=== PATIENT | female | born 1965 | race Caucasian/White ===

== ENCOUNTER 2017-07-30 08:17 | Observation (INO) | payer BC ==
[2017-07-11 10:45] VITALS: BMI 27.0
--- NOTE | 2017-07-11 11:19 | PAT Medication Instructions ---
Service Date Jul 11, 2017. Current Home Medication List Amitriptyline Hcl (Elavil), 50 MG PO HS Bupropion (Wellbutrin Sr), 400 MG PO QAM Gabapentin (Neurontin), 300 MG PO TID Melatonin (Melatonin Maximum Strengt), 1 TAB PO HS Meloxicam (Mobic), 7.5 MG PO BID Mometasone Furoate (Elocon), 1 DOSE TOP PRN Multivitamin (Multivitamin), 1 TAB PO QAM Polyethylene Glycol 3350 (Miralax), 17 GM PO PRN Venlafaxine Hcl (Venlafaxine Hcl Er), 1 TAB PO for PM Medication Instructions For Your Scheduled Surgery - Hold the following medications per your surgeon's instructions: Meloxicam (Mobic), 7.5 MG PO BID - Hold the following medications 24 hours prior to surgery: Mometasone Furoate (Elocon), 1 DOSE TOP PRN - Hold the following medications the morning of surgery: Multivitamin (Multivitamin), 1 TAB PO QAM Polyethylene Glycol 3350 (Miralax), 17 GM PO PRN - Take the following medications the morning of surgery with a sip of water: Gabapentin (Neurontin), 300 MG PO TID Bupropion (Wellbutrin Sr), 400 MG PO QAM - Take the following medications as scheduled the night before surgery: Polyethylene Glycol 3350 (Miralax), 17 GM PO PRN (if needed) Venlafaxine Hcl (Venlafaxine Hcl Er), 1 TAB PO for PM Amitriptyline Hcl (Elavil), 50 MG PO HS Gabapentin (Neurontin), 300 MG PO TID Melatonin (Melatonin Maximum Strengt), 1 TAB PO HS If you have any questions please call us at [phone] or [phone] or [phone]
[2017-07-11 12:54] LABS: BASO % 0.4 %; BASO ABS # 0.03 K/uL (0-0.2); COMPLETE YES; EOS % 1.3 %; HEMATOCRIT 40.4 % (37-47); IG% 0.5 %; LYMPH % 35.6 %; LYMPH ABS # 2.99 K/uL (1.2-3.4); MEAN CELL VOLUME 96.9 fL (80-100); MEAN CORPUSCULAR HEMOGLOBIN 33.8 pg (25-34); MEAN CORPUSCULAR HGB CONC 34.9 g/dl (32-36); MEAN PLATELET VOLUME 10.8 fL (7.4-10.4); MONO % 8.8 %; NEUT % 53.4 %; PLATELET COUNT 241 K/uL (130-400); RED BLOOD COUNT 4.17 M/uL (4.2-5.4); WHITE BLOOD COUNT 8.39 K/uL (4.8-10.8)
--- NOTE | 2017-07-11 12:58 | DIAGNOSTIC IMAGING REPORT ---
CHEST PREADMISSION(PA/LAT) CLINICAL HISTORY: Preoperative evaluation. COMPARISON STUDY: No previous studies for comparison. FINDINGS: Postoperative findings within the upper anterior abdominal wall are incidentally noted. Lung volumes are normal. No pneumothorax or pleural effusion is present. There is no consolidation or evidence of pulmonary edema. Cardiomediastinal silhouette is normal IMPRESSION: No acute cardiopulmonary findings. Electronically signed by: Steve Gavin M.D. 07/11/2017 12:57 PM Dictated Date/Time: 07/11/2017 12:56 PM
[2017-07-11 13:04] LABS: BUN/CREATININE RATIO 20.1 (10-20); CALCIUM 8.9 mg/dl (8.5-10.1); CREATININE 0.69 mg/dl (0.60-1.20); POTASSIUM 3.8 mmol/L (3.5-5.1)
[2017-07-11 13:11] LABS: URINE APPEARANCE CLEAR (CLEAR); URINE BILIRUBIN NEG (NEG); URINE COLOR YELLOW; URINE EPITHELIAL CELL AUTO >30 /lpf (0-5); URINE NITRITE NEG (NEG); URINE PH 6.5 (4.5-7.5); UROBILINOGEN NEG (NEG)
[2017-07-11 13:12] LABS: MANUAL MICROSCOPIC REQUIRED? NO; REVIEW REQ? NO
[2017-07-30] VITALS (14 sets, daily range): BP systolic 116–160; BP diastolic 62–79; PULSE 65–96; TEMP 36.3–38; O2SAT 95–99; Ht 170.2 cm; Wt 79.6 kg
[~2017-07-30] VITALS: Ht 170.2 cm; Wt 79.6 kg
[~2017-07-30 08:17] MED LIST: AMT50 PO; BUPR200T2 PO; CEFAZOLIN 1000MG IV PUSH 5 ML IV SCH; GABA-113 PO; LACTATED RINGER'S 1000ML 1,000 ML IV SCH; MELATAB2 PO; MELO7.5T5 PO; MOME0.1L3 TOP; MULT-506 PO; POLY335019 PO; VENL150T33 PO
--- NOTE | 2017-07-30 08:40 | History & Physical Bridge Note ---
H&P Re-Evaluation Bridge Note: I have examined the patient, reviewed the History & Physical and in the interval since the performance of the History & Physical I have noted the following changes of clinical significance: No changes noted
--- NOTE | 2017-07-30 08:41 | History and Physical ---
History & Physical Date Jul 30, 2017. Chief Complaint Neck and arm pain History of Present Illness The patient is a 52 year old female with complaints of neck and arm pain Additional History Hepatic Disease: No Endocrine Disorder: No Kidney Disease: No Hypertension: No Heart Disease: No Bleeding Tendencies: No Infectious Diseases: No Allergies Coded Allergies: No Known Allergies (Unverified , 07/11/17) Home Medications Scheduled Amitriptyline Hcl (Elavil), 50 MG PO HS Bupropion (Wellbutrin Sr), 400 MG PO QAM Gabapentin (Neurontin), 300 MG PO TID Melatonin (Melatonin Maximum Strengt), 1 TAB PO HS Meloxicam (Mobic), 7.5 MG PO BID Mometasone Furoate (Elocon), 1 DOSE TOP PRN Multivitamin (Multivitamin), 1 TAB PO QAM Polyethylene Glycol 3350 (Miralax), 17 GM PO PRN Scheduled PRN Venlafaxine Hcl (Venlafaxine Hcl Er), 1 TAB PO for PM Physical Examination Skin: warm/dry, no rash Eyes: normal inspection, EOMI, sclerae normal ENT: normal ENT inspection, pharynx normal Head: normocephalic, atraumatic Neck: supple, no adenopathy, trachea midline Respiratory/Chest: lungs clear, normal breath sounds, no respiratory distress Cardiovascular: regular rate, rhythm, no edema, no murmur Abdomen / GI: normal bowel sounds, non tender Back: normal inspection Extremities: normal inspection, normal range of motion Neurologic/Psych: no motor/sensory deficits, alert, normal reflexes, oriented x 3 Diagnosis Cervical spinal stenosis Plan of Treatment ACDF C5 6 C6 7
[2017-07-30] MEDS ORDERED: MIDAZOLAM HCL 1 MG/ML 2ML VIAL ONE (08:58)
[2017-07-30] MEDS ORDERED: FENTANYL CITRATE INJ 50 MCG/1 ML 2 ML VIAL ONE ×3 (08:58→10:40)
[2017-07-30] MEDS ORDERED: MEPERIDINE HCL 25 MG/ML CARP IV PRN (09:00)
[2017-07-30] MEDS ORDERED: ONDANSETRON INJ 2 MG/ML 2 ML VIAL IV PRN ×2 (09:00→11:00)
[2017-07-30] MEDS ORDERED: ATROPINE SULFATE 0.1 MG/ML 5ML SYR IV PRN (09:00)
[2017-07-30] MEDS ORDERED: HYDROmorphone INJ 1 MG/ML SYR IV PRN (09:00)
[2017-07-30] MEDS ORDERED: LABETALOL HCL IV 5 MG/ML 20ML IV PRN (09:00)
[2017-07-30] MEDS ORDERED: EpHEDrine SULFATE INJ 50 MG/ML AMP IV PRN (09:00)
[2017-07-30] MEDS ORDERED: BACITRACIN 50000 UNIT VIAL ONE (09:03)
[2017-07-30] MEDS ORDERED: HYDROmorphone INJ 2 MG/ML SYR/VIAL ONE ×2 (09:39→10:42)
[2017-07-30] MEDS ORDERED: EpHEDrine SULFATE 50MG/5ML SYR ONE (09:56)
[2017-07-30] MEDS ORDERED: PHENYLEPHRINE 100MCG/ML 5ML SYR ONE (09:56)
[2017-07-30] MEDS ORDERED: LIDOCAINE HCL 2% 2 ML VIAL (20MG/ML) ONE (10:30)
[2017-07-30] MEDS ORDERED: ONDANSETRON INJ 2 MG/ML 2 ML VIAL ONE ×2 (10:30→11:50)
[2017-07-30] MEDS ORDERED: DEXAMETHASONE SOD INJ 4 MG/ML VIAL ONE (10:30)
[2017-07-30] MEDS ORDERED: PROPOFOL IV EMULSION 10 MG/ML 20 ML VIAL IV ONE (10:30)
[2017-07-30] MEDS ORDERED: ROCURONIUM BROMIDE 10 MG/ML 5 ML VIAL IV ONE (10:30)
[2017-07-30] MEDS ORDERED: FLOSEAL HEMOSTATIC MATRIX 10ML TOP ONE (10:42)
--- NOTE | 2017-07-30 10:56 | DIAGNOSTIC IMAGING REPORT ---
Cervical SPINE, INTRAOPERATIVE FLUOROSCOPY HISTORY: ACDF C5 C7. FLUOROSCOPY TIME: 16 seconds. FINDINGS: Intraoperative fluoroscopy was provided for the cervical spine. 5 fluoroscopic spot images were obtained. Anterior cervical discectomy and fusion from C5 through C7. The hardware appears intact. IMPRESSION: Fluoroscopy provided for a C5-C7 ACDF. Electronically signed by: Marino Yeager M.D. 07/30/2017 10:55 AM Dictated Date/Time: 07/30/2017 10:54 AM
[2017-07-30] MEDS ORDERED: LORAZEPAM INJ 0.5 MG in SYRINGE 0.75 ML IV PRN (11:00)
[2017-07-30] MEDS ORDERED: MAGNESIUM HYDROXIDE SUSP 30 ML UDC PO PRN (11:00)
[2017-07-30] MEDS ORDERED: DiphenhydrAMINE HCL 50 MG/ML VIAL IV PRN (11:00)
[2017-07-30] MEDS ORDERED: ACETAMINOPHEN IV 1,000 MG in EMPTY BAG 0 ML IV PRN (11:00)
[2017-07-30] MEDS ORDERED: DO NOT ADMINISTER FLU VACCINE PRN ×3 (11:00)
[2017-07-30] MEDS ORDERED: RACEPINEPHRINE 2.25% NEBU SOLN 0.5 ML VIAL INH PRN (11:00)
[2017-07-30] MEDS ORDERED: NALOXONE HCL 0.4 MG/1 ML VIAL/CARP IV PRN (11:00)
[2017-07-30] MEDS ORDERED: LORAZEPAM 0.5 MG TAB PO PRN (11:00)
[2017-07-30] MEDS ORDERED: DO NOT ADMINISTER PNEUMOCOCCAL VACCINE PRN ×2 (11:00)
[2017-07-30] MEDS ORDERED: DEXAMETHASONE INJ 8 MG in SYRINGE 0 ML IV PRN (11:00)
--- NOTE | 2017-07-30 11:07 | [facility] Operative Report ---
Operative Report Operative Date Jul 30, 2017. Pre-Operative Diagnosis Cervical spinal stenosis Post-Operative Diagnosis Cervical spinal stenosis Procedure(s) Performed #1 anterior cervical discectomy bilateral foraminotomies C5 6 C6 7. #2 anterior cervical arthrodesis C5 6 C6 7. #3 placement of cortical allograft filled with DBM 7 mm in height C5 6 and C6 7. #4 application of carvajal plate and screws C5 [address] Carrillo Rn Telemetry Surgeon(s) ISRAEL Snider Estimated Blood Loss 20ml Findings Severe spinal stenosis Specimens none per surgeon Description of Procedure Patient was met with preoperatively case discussed all questions addressed. After informed consent was obtained patient was taken to the operative suite underwent intubation and placed in a supine position the Van table on top of the Fareed frame. All bony prominences were well-padded eyes inspected to ensure no external pressure placed upon them. This point the anterior cervical spine was prepped and draped nostril fashion. With the assistance of fluoroscopy identified the C5 6 vertebral body. A transverse incision was placed along the right anterior aspect of cervical spine overlying surgery. Dissection with the assistance of bipolar electrocautery was performed onto an exposing the anterior cervical spine C5 6 and 7. Cefotan retractors placed. Then performed a complete discectomy of C5 6 out to the uncovertebral joints bilaterally. This did include removal of all posterior annular fibers and longitudinal ligament and bilateral foraminotomies. Anchorage distracting pins were utilized to assist us no visualization. After complete decompression endplates were burred to subcortical bleeding bone and a 7 mm allograft filled with DBM was tapped in position. Distracting apparatus was removed and I proceeded to C5 6 level. Again a complete discectomy was performed out to the uncovertebral joints bilaterally. Anchorage distractor again used. I did remove all posterior inner fibrous longitudinal ligament and bilateral foraminotomies performed. An plates burred to subcortical bleeding bone and again a 7 mm cortical graft filled with DBM tapped in position. Distracting apparatus was removed. All anterior osteophytes were were burred to smooth cortical surface and a carvajal plate and screws applied with the assistance of fluoroscopy. Incision was in copious irrigated explored to ensure there is no damage to signing structures remaining bleeding and a 10 round NAWAF drain inserted. Was then closed with 2 Vicryl in the fascia for Monocryl for final skin closure Steri-Strips sterile dressings placed. Patient we can take PACU in stable condition. Please note Yvonne Stephens was present at the entire procedure involved in patient positioning complex portions of the surgery and final skin closure. I attest to the content of the Intraoperative Record and any orders documented therein. Any exceptions are noted below.
[2017-07-30] MEDS: FENTANYL CITRATE INJ 50 MCG/1 ML 2 ML VIAL IV PRN ×2 (11:38→11:47)
[2017-07-30] MEDS ORDERED: GLYCOPYRROLATE INJ 0.2 MG/ML VIAL ONE (11:50)
[2017-07-30] MEDS ORDERED: NEOSTIGMINE METHYLSULFATE 1 MG/ML 10ML VIAL ONE (11:50)
[2017-07-30] MEDS ORDERED: CEFAZOLIN SOD 1 GM VIAL ONE (12:03)
--- NOTE | 2017-07-30 12:42 | Anesthesiology Progress Note ---
Anesthesia Post Op Note Date & Time Jul 30, 2017 at 12:42 Vital Signs Pain Intensity: 3 Vital Signs Past 12 Hours Date Time Temp Pulse Resp B/P (MAP) Pulse Ox O2 Delivery O2 Flow Rate FiO2 07/30/17 12:16 137/78 07/30/17 12:14 85 17 97 07/30/17 12:14 84 17 07/30/17 12:11 135/77 07/30/17 12:09 76 18 95 07/30/17 12:09 75 18 07/30/17 12:06 132/77 07/30/17 12:05 36.5 72 20 138/78 96 Nasal Cannula 4 07/30/17 12:04 81 18 97 07/30/17 12:04 80 18 07/30/17 12:01 138/78 07/30/17 11:59 80 18 98 07/30/17 11:59 80 18 07/30/17 11:56 139/75 07/30/17 11:54 70 12 98 07/30/17 11:54 72 12 07/30/17 11:51 135/71 07/30/17 11:49 75 17 97 07/30/17 11:49 72 17 07/30/17 11:46 137/76 07/30/17 11:44 73 17 07/30/17 11:44 73 17 96 07/30/17 11:41 145/76 07/30/17 11:39 74 20 96 07/30/17 11:39 74 20 07/30/17 11:36 147/78 07/30/17 11:34 80 19 94 07/30/17 11:34 80 19 07/30/17 11:31 148/82 07/30/17 11:29 81 20 07/30/17 11:29 82 20 97 07/30/17 11:26 140/84 07/30/17 11:24 81 22 93 07/30/17 11:24 81 22 07/30/17 11:21 146/84 07/30/17 11:19 77 20 07/30/17 11:19 76 20 94 07/30/17 11:16 151/80 07/30/17 11:14 87 18 07/30/17 11:14 87 18 94 07/30/17 11:11 153/76 07/30/17 11:09 81 22 96 07/30/17 11:09 81 22 07/30/17 11:06 133/68 07/30/17 11:04 78 16 07/30/17 11:04 78 16 91 07/30/17 11:00 145/73 07/30/17 11:00 36.2 82 14 145/73 91 Mask 12 07/30/17 08:48 36.7 71 20 160/78 Room Air Notes Mental Status: alert / awake / arousable, participated in evaluation Pt Amnestic to Procedure: Yes Nausea / Vomiting: adequately controlled Pain: adequately controlled Airway Patency, RR, SpO2: stable & adequate BP & HR: stable & adequate Hydration State: stable & adequate Anesthetic Complications: no major complications apparent
[2017-07-30] MEDS ORDERED: LACTATED RINGER'S 1000ML 1,000 ML IV SCH (13:00)
[2017-07-30] MEDS: HYDROmorphone INJ 0.5 MG/0.5 ML SYR IV PRN ×2 (13:05→17:53)
[2017-07-30] MEDS ORDERED: RXC5 PO (13:22)
--- NOTE | 2017-07-30 13:23 | Discharge Instructions ---
Discharge Instructions Date of Service Jul 30, 2017. Admission Reason for Admission: Cervical Spinal Stenosis Discharge Discharge Diagnosis / Problem: cervical stenosis Discharge Goals Goal(s): Improve function Activity Recommendations Activity Limitations: per Instructions/Follow-up section . Instructions / Follow-Up Instructions / Follow-Up ACTIVITY RECOMMENDATIONS: SELF CARE INSTRUCTIONS AFTER CERVICAL FUSIONS 1. No smoking. Smoking drastically decreases the chance of a solid fusion. 2. No bending, lifting more than 5 pounds, or twisting (roll like a log when turning in bed). 3. You may shower 3 days after surgery. Thoroughly dry wound. Do not soak in the tub. 4. Cervical collar: Must be worn at all times including sleeping. You may remove the brace only to bath, eat and if you are sitting in a recliner. 5. Please walk as much as you can for exercise. Gradually increase the distance that you walk as your endurance increases. SPECIAL CARE INSTRUCTIONS: VERY IMPORTANT TO READ AND REVIEW A. Do not take any anti-inflammatory medications (i.e. Indocin, Advil, Aspirin, Naprosyn, Aleve, Motrin, etc.) as these may inhibit the chance of a solid fusion. Tylenol is okay to take. B. Your surgical incision has been closed with a cosmetic suture under the skin that will dissolve in about 6 weeks. In 14 days, you can use a pair of clean scissors and cut the suture that is left outside of the skin at the ends of your incision. C. Complications are uncommon, but please contact us if you have any signs or symptoms of: 1. wound infection (fever higher than 102.5 degrees F, redness, separation of wound, drainage, or increasing pain from the incision) 2. blood clots in legs (pain, swelling, redness and warmth in legs) 3. urinary tract infection (fever higher than 102.5 degrees, burning upon urination or increased frequency of urination) 4. nerve problems (inability to walk on your toes or heels, numbness, loss of bowel or bladder control) 5. any other symptoms that concern you. D. Please call the office at if you have any concerns or questions about your operation or recovery. MANAGING PAIN AFTER SPINAL SURGERY 1. Narcotic medication is intended for short-term use and will be provided for surgical pain. Surgical pain usually lasts for a period of 4-6 weeks. Narcotic medication includes Percocet, Vicodin, Darvocet, Tylenol #3 or Lortab. 2. Longer-term pain is more appropriately treated with non-narcotic medication such as Tylenol ES. 3. Muscle spasm is not appropriately treated with narcotics. Muscle relaxers such as Soma, Flexeril or Skelaxin can be used along with Tylenol ES. 4. Remember that we all live with some "aches and pains". This is not unusual or uncommon after an injury or as we get older. 5. We will provide appropriate medication within the normal guidelines of their prescribed use. We will also be very cautious and aware of potential abuse and extended duration of patients' medication needs. 6. Please allow 2-3 days to process refills. Prescriptions will not be mailed but must be picked up at the office. FOLLOW UP VISIT: Keep your scheduled follow-up appointment. Any questions, please call the office at . Current Hospital Diet Patient's current hospital diet: Clear Liquid Diet Discharge Diet Recommended Diet: Regular Diet Procedures Procedures Performed: #1 anterior cervical discectomy bilateral foraminotomies C5 6 C6 7. #2 anterior cervical arthrodesis C5 6 C6 7. #3 placement of cortical allograft filled with DBM 7 mm in height C5 6 and C6 7. #4 application of carvajal plate and screws C5 6 C6 7 Pending Studies Studies pending at discharge: no Medical Emergencies . Who to Call and When: Medical Emergencies: If at any time you feel your situation is an emergency, please call 911 immediately. . Non-Emergent Contact Non-Emergency issues call your: Primary Care Provider . "Provider Documentation" section prepared by Efe Carrillo. . VTE Core Measure Inpt VTE Proph given/why not?: Donald Deshpande, SCD's
[2017-07-30] MEDS ORDERED: SCOPOLAMINE 1.5 MG TDSY TD SCH (13:30)
[2017-07-30] MEDS: OXYCODONE HCL IR 5 MG TAB (IMMEDIATE RELEASE) PO PRN ×2 (15:27→21:39)
[2017-07-30] MEDS: GABAPENTIN 300 MG CAP PO SCH ×2 (15:28→20:45)
[2017-07-30] MEDS: CEFAZOLIN IV 2,000 MG in SYRINGE 0 ML IV SCH ×2 (15:32→23:20)
[2017-07-30] MEDS: CHECK SCOPOLAMINE PATCH PLACEMENT SCH ×2 (15:33→23:20)
[2017-07-30] MEDS ORDERED: IV FLUIDS COMPLETED PRN (17:00)
[2017-07-30] MEDS: DEXAMETHASONE INJ 6 MG in SYRINGE 0 ML IV SCH (18:25)
[2017-07-30] MEDS: DOCUSATE SODIUM 100 MG CAP PO SCH (20:45)
[2017-07-30] MEDS ORDERED: NURSING VERBAL MED ORDER ONE ×2 (20:45→21:15)
[2017-07-30] MEDS ORDERED: AMITRIPTYLINE HCL 50 MG TAB PO SCH (21:00)
[2017-07-30] MEDS: LACTATED RINGER'S 1000ML 1,000 ML IV SCH (21:39)
[2017-07-31] VITALS (13 sets, daily range): BP systolic 114–136; BP diastolic 62–81; PULSE 66–87; TEMP 36.5–36.7; O2SAT 92–97
[2017-07-31] MEDS: DEXAMETHASONE INJ 6 MG in SYRINGE 0 ML IV SCH ×2 (01:36→08:41)
[2017-07-31] MEDS: OXYCODONE HCL IR 5 MG TAB (IMMEDIATE RELEASE) PO PRN ×2 (05:36→09:46)
--- NOTE | 2017-07-31 07:51 | Anesthesiology Progress Note ---
Anesthesia Post Op Note Date & Time Jul 31, 2017 at 07:50 Vital Signs Vital Signs Past 12 Hours Date Time Temp Pulse Resp B/P (MAP) Pulse Ox O2 Delivery O2 Flow Rate FiO2 07/31/17 07:35 36.5 76 17 134/69 (90) 95 Room Air 07/31/17 07:33 36.6 83 14 114/63 (95) 95 Room Air 07/31/17 07:31 Room Air 07/31/17 07:21 81 14 95 Room Air 07/31/17 05:31 36.6 83 16 114/63 97 Nasal Cannula 2.0 Humidified Oxygen 07/31/17 03:48 75 14 96 Nasal Cannula 2.0 07/31/17 03:32 36.6 73 16 128/71 (90) 96 Nasal Cannula 2.0 Humidified Oxygen 07/31/17 03:30 36.6 73 16 128/71 96 Nasal Cannula 2.0 Humidified Oxygen 07/31/17 01:28 36.5 66 16 136/81 97 Nasal Cannula 2.0 Humidified Air 07/31/17 00:15 67 14 96 Nasal Cannula 2.0 07/30/17 23:25 36.3 65 16 116/62 (80) 97 Nasal Cannula 2.0 Humidified Oxygen 07/30/17 23:25 36.3 65 16 116/62 97 Nasal Cannula 2.0 Humidified Oxygen 07/30/17 23:25 Nasal Cannula 2.0 Humidified Oxygen 07/30/17 21:32 36.6 93 16 138/79 97 Nasal Cannula 2.0 Humidified Oxygen 07/30/17 20:11 85 16 97 Nasal Cannula 2.0 Notes Mental Status: alert / awake / arousable, participated in evaluation Pt Amnestic to Procedure: Yes Nausea / Vomiting: adequately controlled Pain: adequately controlled Airway Patency, RR, SpO2: stable & adequate BP & HR: stable & adequate Hydration State: stable & adequate Anesthetic Complications: no major complications apparent
[2017-07-31] MEDS: CHECK SCOPOLAMINE PATCH PLACEMENT SCH (08:00)
[2017-07-31] MEDS: DOCUSATE SODIUM 100 MG CAP PO SCH (08:39)
[2017-07-31] MEDS: GABAPENTIN 300 MG CAP PO SCH (08:39)
[2017-07-31] MEDS: LACTATED RINGER'S 1000ML 1,000 ML IV SCH (08:46)
[2017-07-31] MEDS: CEFAZOLIN IV 2,000 MG in SYRINGE 0 ML IV SCH (08:47)
[2017-07-31] MEDS ORDERED: BuPROPion SR 100 MG TABCR PO SCH (09:00)
--- NOTE | 2017-07-31 11:15 | Discharge Summary ---
Orthopedic Discharge Summary Admission Date/Reason Jul 30, 2017 at 10:49 Cervical Spinal Stenosis. Discharge Date/Disposition Jul 31, 2017 Home Diagnosis Principal Diagnosis: Cervical spinal stenosis Admission Physical Exam As per Admitting History & Physical. Hospital Course Patient underwent anterior cervical decompression fusion tolerated as well as taken to the orthopedic floor postoperatively. Postoperative day 1 she swallowing well no hoarseness arm symptoms improved. Substernally she was discharged home. Discharge orders and instructions can be found the chart for further review. Discharge Instructions Please refer to the electronic Patient Visit Report (Discharge Instructions) for additional information.
[2017-08-01] MEDS ORDERED: BISACODYL 10 MG SUPP PR PRN (06:00)
[2017-08-01] MEDS ORDERED: BISACODYL 5 MG TABEC PO PRN (06:00)
[2017-08-02] MEDS ORDERED: POLYETHYLENE (MIRALAX) 17 GM PACK PO SCH (09:00)
== END 2017-07-31 13:35 | disposition home or self-care (01) ==
LOC: C.ACU 08:17 → C.3E 10:49 → ENRESERV 11:55
PROVIDERS: ADMIT Orthopaedic Surgery Orthopaedic Surgery of the Spine; ATTEND Orthopaedic Surgery Orthopaedic Surgery of the Spine
DX: M48.02 Spinal stenosis, cervical region (principal); Z79.899 Other long term (current) drug therapy